=== PATIENT | male | born 1990 | race Caucasian/White ===

== ENCOUNTER 2020-08-27 12:45 | Emergency (ER) | payer OTHER, MEDICAID ==
[~2020-08-27] VITALS: Ht 170.2 cm; Wt 89.8 kg
[2020-08-27 13:05] VITALS: Ht 170.2 cm; Wt 89.8 kg
[2020-08-27 14:55] VITALS: BP 135/89
== END 2020-08-27 14:55 | disposition home or self-care (01) ==
LOC: ED 12:45
DX: S29.012A Strain of muscle and tendon of back wall of thorax, initial encounter (principal); R07.89 Other chest pain; R22.0 Localized swelling, mass and lump, head; V49.49XA Driver injured in collision with other motor vehicles in traffic accident, initial encounter; Y93.I9 Activity, other involving external motion; Y92.488 Other paved roadways as the place of occurrence of the external cause; Y99.8 Other external cause status